=== PATIENT | male | born 1950 | race Caucasian/White ===

== ENCOUNTER → 2019-02-24 | Outpatient (CLI) | payer OTHER, MEDICAID ==
[~2019-02-24] VITALS: Ht 160 cm; Wt 72.6 kg
[2019-02-24] VITALS (7 sets, daily range): BP systolic 132–168; BP diastolic 88–115
[~2019-02-24] MED LIST: ATIVAN0.5 MG PO; BACTRIM DS TAB1 EACH PO; FLOMAX0.4 MG PO; IBUPROFEN 200200 M1 PO; MOBIC15 MG PO; OMEPRAZOLE40 MG PO; PRAVACHOL40 MG PO; PROVERA10 MG PO; SINGULAIR 10 MG10 M1 PO; VIAGRA50 MG PO; VITAMIN D32000 UNI1 PO
[2019-02-24 09:39] LABS: ABSOLUTE BASOPHILS 0.1 thou/uL (0.0-0.2); ABSOLUTE EOSINOPHILS 0.3 thou/uL (0.0-0.7); ABSOLUTE LYMPHOCYTES 1.2 thou/uL (0.8-5.3); ABSOLUTE MONOCYTES 0.7 thou/uL (0.0-1.2); ABSOLUTE NEUTROPHILS 1.3 thou/uL (1.6-8.1); BASOPHILS 2.1 %; EOSINOPHILS 7.5 %; HEMATOCRIT 43.2 % (42.0-52.0); LYMPHOCYTES 34.9 %; MCH 32.7 pg (26.0-34.0); MCHC 34.7 g/dL (28.0-37.0); MONOCYTES 19.5 %; MPV 8.3 fl. (7.2-11.1); NUCLEATED RBCS 0 /100WBC; PLATELET COUNT* 234 thou/uL (150-400); RDW-CV 13.9 % (10.5-14.5); WBC 3.5 thou/uL (4.0-11.0)
[2019-02-24 09:47] LABS: APTT 24.3 Seconds (25.0-31.3)
== END | disposition home or self-care (01) ==
LOC: M.ULTRA 02-07 10:00
PROVIDERS: Radiology Diagnostic Radiology
DX: C61 Malignant neoplasm of prostate (principal); Z85.818 Personal history of malignant neoplasm of other sites of lip, oral cavity, and pharynx; Z98.890 Other specified postprocedural states; Z79.01 Long term (current) use of anticoagulants